=== PATIENT | male | born 1985 | race Two or more races ===

== ENCOUNTER 2017-07-24 19:22 | Emergency (ER) | payer OTHER, SELFPAY ==
[~2017-07-24] VITALS: Ht 180.3 cm; Wt 118.3 kg
[2017-07-24 19:24] VITALS: BP 145/88
[2017-07-24] MEDS ORDERED: DIPH,PERTUSS(ACELL),TET VAC/PF 0.5 ML IM-VACC ONE ×2 (19:30→19:38)
[2017-07-24] MEDS ORDERED: LIDOCAINE-MPF 1%, 5ML INFIL ONE (19:30)
[2017-07-24] MEDS ORDERED: LIDOCAINE-MPF 1%, 5ML ONE ×2 (19:38→20:21)
[2017-07-24] MEDS ORDERED: BUPIVACAINE/PF 0.5% ONE (20:03)
[2017-07-24] MEDS ORDERED: BACITRACIN ZINC OINT 500U/GM, 0.9 GM ONE (20:44)
[2017-07-24] MEDS ORDERED: HYDROcodone/APAP 5/325 TABLET PO STA (21:25)
[2017-07-24] MEDS ORDERED: HYDROcodone/APAP 5/325 TABLET ONE (21:27)
[2017-07-24] MEDS ORDERED: CEPHALEXIN 500 MG CAPSULE ONE (21:27)
[2017-07-24] MEDS ORDERED: CEPHALEXIN 500 MG CAPSULE PO ONE (21:30)
== END 2017-07-24 21:57 | disposition home or self-care (01) ==
LOC: ED 21:17
DX: S62.652A Nondisplaced fracture of middle phalanx of right middle finger, initial encounter for closed fracture (principal); S62.654A Nondisplaced fracture of middle phalanx of right ring finger, initial encounter for closed fracture; X58.XXXA Exposure to other specified factors, initial encounter; Y93.89 Activity, other specified; Y92.69 Other specified industrial and construction area as the place of occurrence of the external cause; Y99.0 Civilian activity done for income or pay; S61.212A Laceration without foreign body of right middle finger without damage to nail, initial encounter
CPT/HCPCS: 11760; 90471; 90715; 99284